=== PATIENT | male | born 1970 | race Caucasian/White ===

== ENCOUNTER 2018-04-22 13:45 | Outpatient (CLI) | payer BC, SELFPAY ==
--- NOTE | 2018-04-22 13:42 | DI.RAD_ITS ---
SYMPTOM/DIAGNOSIS: SHOULDER PAIN LEFT SHOULDER: Three views. No acute fracture, dislocation, lytic or sclerotic lesion is seen. The glenohumeral joint and acromioclavicular joints appear well maintained. The soft tissues are unremarkable. IMPRESSION: Negative examination.
== END 2018-04-22 14:05 ==
PROVIDERS: Visit Provider Physician Assistant
DX: M25.512 Pain in left shoulder (principal)
CPT/HCPCS: 73030

== ENCOUNTER 2018-05-01 00:29 | Outpatient (CLI) | payer BC, SELFPAY ==
--- NOTE | 2018-05-01 09:53 | DI.MRI_ITS ---
SYMPTOMS/DIAGNOSIS: ARTHRALGIA OF LT ACROMIOCLAVICULAR JOINT, M25.512, PAIN IN LT SHOULDER, ? MASS OF LT SHOULDER MRI OF THE LEFT SHOULDER: Comparison is made with plain films dated . T 1 and fat suppressed T 2 axial, coronal and sagittal sequences and pre and post Gadolinium T 1 axial, coronal and sagittal sequences were performed. There is a small amount of fluid at the AC joint. There is no significant impingement. No mass is identified. The rotator cuff tendons appear intact. No labral defects are seen. The marrow signal appears normal. The post contrast images show mild enhancement at the AC joint, consistent with acromioclavicular joint arthritis. No additional areas of abnormal enhancement are seen. IMPRESSION: Acromioclavicular joint arthritis. There is no evidence of a mass. No rotator cuff abnormality is seen.
[2018-05-01] MEDS: Gadoterate meglumine 20 ML VIAL 17 ML IVP (10:56)
== END 2018-05-01 00:49 ==
PROVIDERS: Visit Provider Student in an Organized Health Care Education/Training Program
DX: M25.512 Pain in left shoulder (principal); M19.012 Primary osteoarthritis, left shoulder
CPT/HCPCS: 73223

== ENCOUNTER 2023-03-05 04:46 | Outpatient (CLI) | payer BC, SELFPAY ==
[2023-03-05 11:49] LABS: Anion Gap 6.1 mmol/L (3-11); BUN 19 mg/dL (7-18); CO2 29.9 mmol/L (21.0-32.0); CREATININE 1.1 mg/dL (0.70-1.30); Calcium 9.1 mg/dL (8.5-10.1); Calculated LDL 130 mg/dL (<100); Chloride 103 mmol/L (98-107); Cholesterol 219 mg/dL (<200); Estimated GFR 81.78 (mL/min/1.73m2); Glucose 101 mg/dL (74-106); HDL Cholesterol 76 mg/dL (40-60); Potassium 4.1 mmol/L (3.5-5.1); Sodium 139 mmol/L (136-145); TSH (W/Ref FT4) 2.36 uIU/mL (0.36-3.74); Triglyceride 66 mg/dL (<150)
[2023-03-05 18:30] LABS: PSA, Screening 0.5 ng/mL (<=3.5)
== END 2023-03-05 04:47 | disposition home or self-care (01) ==
LOC: LOS 04:46
PROVIDERS: PCP Nurse Practitioner Family; Visit Provider Nurse Practitioner Family
DX: Z00.00 Encounter for general adult medical examination without abnormal findings (principal); Z13.220 Encounter for screening for lipoid disorders; Z13.228 Encounter for screening for other metabolic disorders; Z12.5 Encounter for screening for malignant neoplasm of prostate; Z13.29 Encounter for screening for other suspected endocrine disorder
CPT/HCPCS: 36415; 80048; 80061; 84153; 84443

== ENCOUNTER 2024-03-22 03:14 | Outpatient (CLI) | payer BC, SELFPAY ==
[2024-03-22 08:38] LABS: HCT 47.1 % (40.0-50.0); HGB 15.8 g/dL (13.5-17.5); MCH 29.3 pg (27.0-33.0); MCHC 33.5 % (32.0-36.0); MCV 87 fL (80-95); MPV 8.8 fL (8.0-11.0); Platelet Count 214 10^3/uL (130-400); RDW 12.6 % (11.8-14.1); RDW-SD 40.4 fL; WBC 4.52 10^3/uL (4.4-10.8)
[2024-03-22 09:21] LABS: Hemoglobin A1C 5.2 % (<5.7)
[2024-03-22 09:31] LABS: ALT 27 U/L (16-63); AST 11 U/L (15-37); Alkaline Phosphatase 49 U/L (46-116); BUN 22 mg/dL (7-18); Bilirubin, Total 0.72 mg/dL (0.2-1.0); CREATININE 1.1 mg/dL (0.70-1.30); Calcium 8.9 mg/dL (8.5-10.1); Chloride 104 mmol/L (98-107); Estimated GFR 81.28 (mL/min/1.73m2); Glucose 82 mg/dL (74-106); Potassium 4.2 mmol/L (3.5-5.1); Sodium 142 mmol/L (136-145); Total Protein 7.1 g/dL (6.4-8.2)
[2024-03-22 18:10] LABS: PSA, Screening 0.5 ng/mL (<=3.5)
[2024-03-22 18:29] LABS: HBs Antibody, Quant <3.1 mIU/mL (See Note); Hep B Surface Ab Negative (See Note); Hepatitis B Core Antibody Negative (Negative); Hepatitis B Surface Antigen Negative (Negative)
[2024-03-22 18:32] LABS: HIV-1/2 Ag & Ab Screen Negative (Negative)
[2024-03-22 18:50] LABS: Hepatitis C Ab w Rflx HCV PCR Negative (Negative)
== END 2024-03-22 03:15 | disposition home or self-care (01) ==
PROVIDERS: PCP Nurse Practitioner Family; Visit Provider Nurse Practitioner Family
DX: Z11.4 Encounter for screening for human immunodeficiency virus [HIV] (principal); Z00.00 Encounter for general adult medical examination without abnormal findings; E78.5 Hyperlipidemia, unspecified; Z11.59 Encounter for screening for other viral diseases; Z12.5 Encounter for screening for malignant neoplasm of prostate
CPT/HCPCS: 36415; 80053; 84153; 85027; 86704; 86706; 86803; 87340; 87389; 83036